=== PATIENT | female | born 2000 | race Caucasian/White ===

== ENCOUNTER 2021-11-18 14:11 | Emergency (ER) | payer MEDICAID, SELFPAY ==
[2021-11-18 14:18] VITALS: BP 125/77; PULSE 77; RESP 16; TEMP 36.8; O2SAT 97
[2021-11-18 14:28] VITALS: BP 125/77; PULSE 77; RESP 16; O2SAT 97
--- NOTE | 2021-11-18 14:29 | ED_ITS ---
Documented by User: ELMER Keenan 11/18/21 16:33 HPI - Headache General: Chief Complaint: Headache Stated Complaint: Migraines Time Seen by Provider: 11/18/21 14:21 Source: patient and family (mother) Mode of arrival: ambulatory Limitations: no limitations History of Present Illness: Patient is a 21-year-old female who presents to the ED today along with her mother for treatment of a headache. Patient tells me she has been diagnosed with migraines through her PCP. She states she has approximately 2 headaches weekly and has so for the past year. She states pain is usually located to right retro-orbital area and she often has accompanying nausea and vomiting. She reports no known invoking factors for her discomfort. She states normally pain will last less than 24 hours and subside on its own. Patient states she came to the ED today because her headache is lasting longer than normal-has had discomfort for the last 2.5 days. She states the location and characteristics of her pain currently are identical to previous headaches. Patient has never had a neurology evaluation. She reports no previous CT/MRI imaging. MD elicited complaint: headache and migraine Onset (ago): day(s) Location: right and retro-orbital Severity: severe Pain scale (0-10): 10 Associated symptoms: Reports nausea and vomiting; Deny chest pain, confusion, fever(s), malaise, pre-syncope, rash or syncope Review of Systems Const: Denies: fever(s), chills, body aches, fatigue or malaise Eyes: Denies: change in vision, blurry vision, photophobia, floaters or seeing flashes ENMT: Denies: throat pain, odynophagia, ear or mastoid pain, nasal discharge, nasal congestion, post nasal drip or sinus pain Card: Denies: chest pain, palpitations, syncope or pre-syncope Resp: Denies: dyspnea GI: Reports: nausea and vomiting; Denies: abdominal pain Musc: Denies: neck pain, back pain, extremity pain or joint pain Skin/Breast: Denies: rash Neuro: Reports: headache(s); Denies: numbness in extremities, weakness in extremities, sensory changes, dizziness, confusion, Slurred speech present or difficulty communicating thoughts Physical Exam Const: COMMON NORMALS: no acute distress, average body habitus, patient oriented x3, no limitations, healthy appearing, alert and well nourished ORIENTATION/CONSCIOUSNESS: Yes awake, Yes oriented to person, Yes oriented to place and Yes oriented to time OTHER: seated in a dark room, reporting nausea HENMT: COMMON NORMALS: normocephalic and atraumatic HEAD & SCALP: normal to inspection, normocephalic and atraumatic Eye: COMMON NORMALS: Equal, round and reactive pupils present and EOMs intact bilaterally GENERAL EYE: appearance normal, both eyes and all related structures PUPIL: Yes Equal, round and reactive pupils present Neck/C-Spine: COMMON NORMALS: full ROM, no lymphadenopathy, supple and no meningeal signs Resp: COMMON NORMALS: normal respiratory effort and clear to auscultation bilaterally AUSCULTATION: clear to auscultation bilaterally Cardio: COMMON NORMALS: regular rate and regular rhythm RATE: regular rate RHYTHM: regular rhythm Neuro: LLUVIA COMA SCALE: document GCS findings Mercer coma scale eye opening: Spontaneous Mercer coma scale verbal response: Orientated Lluvia coma scale motor response: Obey commands Lluvia coma scale total score: 15 COMMON NORMALS: patient oriented x3, CN's II-XII intact bilaterally, moves all extremities, no focal motor deficits and no sensory deficits noted SENSORIUM/ORIENTATION: Yes alert, Yes oriented to person, Yes oriented to place and Yes oriented to time MENINGEAL SIGNS: Yes no meningeal signs SPEECH: speech normal GAIT: Yes Normal gait present Skin: COMMON NORMALS: no rashes or lesions noted GENERAL SKIN EXAM: no rashes or lesions noted Course Vital Signs: Vital signs: Vital Signs Temperature 98.3 F 11/18/21 14:18 Pulse Rate 77 11/18/21 14:28 Respiratory Rate 16 11/18/21 14:28 Blood Pressure 125/77 11/18/21 14:28 Pulse Oximetry 97 11/18/21 14:28 MDM - Headache Medical Decision Making Patient has no acute neurologic deficits on her exam. Her headache/nausea/vomiting is much improved after fluids and medications given here. Patient is reporting at least biweekly headaches over the past year. I think she would benefit from being placed on a prophylactic medication and getting her appropriate follow-up with neurology for further evaluation to see if there could be other etiologies for her headaches. Given the length of symptoms I do not feel we need to perform emergent CT/MRI imaging from the ED today. Strict return to ED precautions verbally given to mother and patient. Discharge Plan Discharge Patient Disposition: Home Clinical Impression: Chronic headaches Qualifiers: Headache type: unspecified Intractability: not intractable Qualified Code(s): R51.9 - Headache, unspecified Condition: Stable Prescriptions: New propranolol 20 mg tablet 20 mg PO BID Qty: 60 0RF Discharge Orders: Discharge ED (Routine); Ordered 11/18/21 Ordered By: Yessica Lee Referrals: NOT ON FILE,DOCTOR [Primary Care Provider] - Activity Restrictions/Additional Instructions: As we discussed I will place a referral to Dr. Carolina for further evaluation of her chronic headaches. Given the fact that patient is having multiple headaches weekly we will try a prophylactic medication to help reduce the number of headaches that she has on a monthly basis. You may begin the medication as prescribed-this can be titrated up if the lower dose is not effective. Please monitor for symptoms such as lightheadedness, dizziness, passing out episodes. Do not give this medication of these occur. Coding Level of Care Code ED Janitorial Account Manager for Chg Fwd Exam Comprehensive Documented by User: Justin Chisholm DO 11/18/21 17:08 HPI - Headache General: Chief Complaint: Headache Stated Complaint: Migraines Time Seen by Provider: 11/18/21 14:21 Physical Exam Neuro: LLUVIA COMA SCALE: document GCS findings Mercer coma scale total score: 15 Course Vital Signs: Vital signs: Vital Signs Temperature 98.3 F 11/18/21 14:18 Pulse Rate 77 11/18/21 14:28 Respiratory Rate 16 11/18/21 14:28 Blood Pressure 125/77 11/18/21 14:28 Pulse Oximetry 97 11/18/21 14:28 MDM - Headache Medical Decision Making Patient has no acute neurologic deficits on her exam. Her headache/nausea/vomiting is much improved after fluids and medications given here. Patient is reporting at least biweekly headaches over the past year. I think she would benefit from being placed on a prophylactic medication and g etting her appropriate follow-up with neurology for further evaluation to see if there could be other etiologies for her headaches. Given the length of symptoms I do not feel we need to perform emergent CT/MRI imaging from the ED today. Strict return to ED precautions verbally given to mother and patient. Chart reviewed and patient discussed with midlevel. Agree with assessment and plan. Discharge Plan Discharge Patient Disposition: Home Clinical Impression: Chronic headaches Qualifiers: Headache type: unspecified Intractability: not intractable Qualified Code(s): R51.9 - Headache, unspecified Condition: Stable Prescriptions: New propranolol 20 mg tablet 20 mg PO BID Qty: 60 0RF Discharge Orders: Discharge ED (Routine); Ordered 11/18/21 Ordered By: Yessica Lee Referrals: NOT ON FILE,DOCTOR [Primary Care Provider] - Activity Restrictions/Additional Instructions: As we discussed I will place a referral to Dr. Carolina for further evaluation of her chronic headaches. Given the fact that patient is having multiple headaches weekly we will try a prophylactic medication to help reduce the number of headaches that she has on a monthly basis. You may begin the medication as prescribed-this can be titrated up if the lower dose is not effective. Please monitor for symptoms such as lightheadedness, dizziness, passing out episodes. Do not give this medication of these occur. Coding Level of Care Code ED Janitorial Account Manager for [employer] Exam Comprehensive
[2021-11-18] MEDS: sodium chloride 0.9% 1,000 ML 999 ML IV (15:05)
[2021-11-18] MEDS: ketorolac 60 mg/2 mL INJ 30 MG IVP (15:16)
[2021-11-18] MEDS: dexamethasone 10 mg/mL INJ 6 MG IV (15:16)
[2021-11-18] MEDS: ondansetron 2 mg/ML SDV 2 mL 4 MG IVP (15:16)
[2021-11-18] MEDS: diphenhydrAMINE 50 mg/mL SDV 1mL 25 MG IVP (15:16)
[2021-11-18] MEDS: metoclopramide 5 mg/mL SDV 2 mL 10 MG IVP (15:55)
--- NOTE | 2021-11-20 12:12 | DCPLANNER ---
Addendum entered by Ivonne Caro 04/28/22 17:26: Patient had a follow up appointment with neurology - patient did attend appointment. Addendum entered by Ivonne Caro 12/09/21 15:23: Patient has a follow up appointment scheduled for February at 10:[address] Carolina at neurology. Clinic will notify patient with appointment information. Addendum entered by Ivonne Caro 12/04/21 07:00: extrusion manager sent a message to neurology to confirm if an appointment had been scheduled for patient. Original Note: extrusion manager had message to schedule a follow up appointment for patient with neurology. extrusion manager emailed patients information to the neurology clinic email. Patients information will be printed and reviewed. Clinic will call patient with appointment information.
== END 2021-11-18 16:29 | disposition home or self-care (01) ==
PROVIDERS: Emergency Provider Physician Assistant
DX: R51.9 Headache, unspecified (principal)
CPT/HCPCS: 96361; 96374; 96375; 99283; J1100; J1200; J1885; J2405; J2765; J7030

== ENCOUNTER → 2022-03-04 08:33 | Outpatient (BNVA) | payer MEDICAID, SELFPAY | PROVIDERS: PCP Student in an Organized Health Care Education/Training Program; Referring Provider Physician Assistant; Visit Provider Specialist | DX: G43.019 Migraine without aura, intractable, without status migrainosus (principal); R20.0 Anesthesia of skin; R20.2 Paresthesia of skin | CPT/HCPCS: 99204 ==

== ENCOUNTER 2022-05-05 11:23 | Outpatient (CLI) | payer MEDICAID, SELFPAY ==
--- NOTE | 2022-05-05 11:45 | MR_ITS ---
WS: [id number] MRI HEAD WITHOUT CONTRAST TECHNIQUE: Sagittal T1, T2 axial, T2 axial FLAIR, axial and coronal T1 images, axial susceptibility w eighted imaging, axial diffusion weighted images, and coronal T2 images were obtained. CLINICAL INFORMATION: G43.019 - Migraine without aura, intractable, without sta... COMPARISON: None. FINDINGS: No evidence of restricted diffusion to suggest acute ischemia. Ventricular system and basal cisterns are patent. Normal posterior fossa. Normal vascular flow voids at the skull base. No extra-axial flui d collections. No evidence of mass or mass effect. Paranasal sinuses and mastoid air cells are well a erated. Normal optic chiasm and pituitary infundibulum. Temporal lobes and hippocampal formations are normal in appearance. No hemosiderin on susceptibly weighted images. MR/MR head wo con* [id number] IMPRESSION: 1. No evidence of restricted diffusion to suggest acute ischemia. 2. No suspicious intracranial signal abnormalities. Normal ma-white differen tiation. 3. Paranasal sinuses and mastoid air cells well aerated. 4. No other suspicious findings.
== END 2022-05-05 11:24 | disposition home or self-care (01) ==
LOC: RAD 11:26
PROVIDERS: PCP Student in an Organized Health Care Education/Training Program; Visit Provider Specialist
DX: G43.019 Migraine without aura, intractable, without status migrainosus (principal)
CPT/HCPCS: 70551

== ENCOUNTER → 2022-07-14 10:25 | Outpatient (BNVA) | payer MEDICAID, SELFPAY | PROVIDERS: PCP Student in an Organized Health Care Education/Training Program; Visit Provider Specialist | DX: G43.019 Migraine without aura, intractable, without status migrainosus (principal) | CPT/HCPCS: 99213 ==